=== PATIENT | female | born 1960 | race Caucasian/White ===

== ENCOUNTER 2016-10-03 13:39 | Emergency (ER) | payer OTHER ==
--- NOTE | 2016-10-03 14:16 | ER Document Report ---
ED Medical Screen (RME) - General Chief Complaint: Palpitations Stated Complaint: CHEST PAIN Time Seen by Provider: 10/03/16 14:15 Notes: Patient presents with palpitations for approximately last 4-5 days. She states have been intermittent. She was noticed at triage her today to be in SVT that spontaneously aborted to a sinus rhythm. She states she has been having some chest pain and shortness of breath as well as lightheadedness and dizziness. She denies any previous history of SVT. She denies any previous history of cardiac disease. She states she has no chronic medical conditions. She denies any new medications. She does not smoke and uses no type of hormone therapy. She denies any previous history of DVT. TRAVEL OUTSIDE OF THE [place] IN LAST 30 DAYS: Yes - mary - Related Data Allergies/Adverse Reactions: No Known Allergies Allergy (Unverified 10/03/16 14:05) Past Medical History Renal/ Medical History: Denies: Hx Peritoneal Dialysis Physical Exam - Vital signs Vitals: Temp Pulse Resp BP 97.7 F 98 20 144/114 H 10/03/16 14:00 10/03/16 14:00 10/03/16 14:00 10/03/16 14:00 Course - Vital Signs Vital signs: Temp Pulse Resp BP Pulse Ox 97.7 F 98 20 144/114 H 10/03/16 14:00 10/03/16 14:00 10/03/16 14:00 10/03/16 14:00
[2016-10-03 14:48] LABS: ABSOLUTE BASOPHILS # (AUTO) 0.1 10^3/uL (0.0-0.2); ABSOLUTE EOSINOPHILS # (AUTO) 0.2 10^3/uL (0.0-0.6); ABSOLUTE LYMPHOCYTES (AUTO) 1.7 10^3/uL (0.5-4.7); ABSOLUTE MONOCYTES (AUTO) 0.8 10^3/uL (0.1-1.4); ABSOLUTE NEUT (AUTO) 3.8 10^3/uL (1.7-8.2); BASOPHILS % (AUTO) 1.1 % (0-2); EOSINOPHILS % (AUTO) 2.5 % (0-6); HEMATOCRIT 45.6 % (36.0-47.0); HEMOGLOBIN 15.7 g/dL (12.0-15.5); HGB HCT DIFFERENCE 1.5; LYMPHOCYTES % (AUTO) 26.1 % (13-45); MEAN CORPUSCULAR HEMOGLOBIN 29.8 pg (27.0-33.4); MEAN CORPUSCULAR HGB CONC 34.4 g/dL (32.0-36.0); MEAN CORPUSCULAR VOLUME 87 fl (80-97); MONOCYTES % (AUTO) 12.4 % (3-13); RED BLOOD COUNT 5.25 10^6/uL (3.72-5.28); RED CELL DISTRIBUTION WIDTH 15.5 % (11.5-14.0); SEGMENTED NEUTROPHILS % (AUTO) 57.9 % (42-78); WHITE BLOOD COUNT 6.6 10^3/uL (4.0-10.5)
--- NOTE | 2016-10-03 15:05 | ER Document Report ---
ED Cardiac - General Mode of Arrival: Wheelchair Information source: Patient TRAVEL OUTSIDE OF THE [place] IN LAST 30 DAYS: Yes - mary - [facility] Patient complains to provider of: Chest pain - soreness, Palpitations, Other - lightheaded/dizzy Was the onset of pain: Sudden Is the pain a: New problem Quality of pain: Intermittent, Dull Cardiac risk factors: None Positive cardiac history: No Associated symptoms: Dizziness, Lightheaded, Palpitations Similar symptoms previously: No Recently seen / treated by doctor: No <ALVIN GARZON - Last Filed: 10/03/16 17:08> <LENA WATTS - Last Filed: 10/03/16 18:12> - General Chief Complaint: Palpitations Stated Complaint: CHEST PAIN Time Seen by Provider: 10/03/16 14:15 Notes: Patient is a 55 year old female presenting to the emergency department for palpitation since Sunday evening. Patient states she notices palpitations that last for about 30 seconds. Patient's palpitations are waxing and waning every 30 minutes and sometimes come on sooner than every 30 minutes. Patient was seen at [facility] yesterday and told she had a sinus arrhythmia and told to go to the emergency department if her palpitations become worse. Patient started taking a baby ASA daily. Patient states that she gets episodes of dizziness and lightheadedness which come on more frequently than the palpitations. Patient states she has not been able to sleep because it has kept her up at night so she has slept in the recliner the last few nights. Patient states she also has a soreness in her chest which is present after an episode. Patient denies taking any regular medications or new medications other than the ASA. Patient is not on any hormone therapy. Patient does not have any chronic medical conditions. Patient denies any cardiac medical history. Patient has no known allergies. (ALVIN GARZON) - Related Data Allergies/Adverse Reactions: No Known Allergies Allergy (Unverified 10/03/16 14:05) Home Medications: Current Home Medications Aspirin [Aspirin EC] 81 mg PO DAILY 10/03/16 [History] Past Medical History - General Information source: Patient - Social History Smoking Status: Never Smoker Cigarette use (# per day): No Chew tobacco use (# tins/day): No Smoking Education Provided: No Frequency of alcohol use: None Drug Abuse: None Family History: None Patient has suicidal ideation: No Patient has homicidal ideation: No Past Surgical History: Reports: Hx Breast Surgery - left breast biopsy x2 <ALVIN GARZON - Last Filed: 10/03/16 17:08> Review of Systems - Review of Systems Constitutional: No symptoms reported EENT: No symptoms reported Cardiovascular: See HPI, Chest pain - soreness, Palpitations, Heart racing, Dizziness, Lightheaded Respiratory: No symptoms reported Gastrointestinal: No symptoms reported Genitourinary: No symptoms reported Female Genitourinary: No symptoms reported Musculoskeletal: No symptoms reported Skin: No symptoms reported Hematologic/Lymphatic: No symptoms reported Neurological/Psychological: No symptoms reported -: Yes All other systems reviewed and negative <ALVIN GARZON - Last Filed: 10/03/16 17:08> Physical Exam - Vital signs Interpretation: Hypertensive <ALVIN GARZON - Last Filed: 10/03/16 17:08> <LENA WATTS - Last Filed: 10/03/16 18:12> - Vital signs Vitals: Temp Pulse Resp BP 97.7 F 98 20 144/114 H 10/03/16 14:00 10/03/16 14:00 10/03/16 14:00 10/03/16 14:00 - Notes Notes: GENERAL: Alert, interacts well. Mild distress. HEAD: Normocephalic, atraumatic. EYES: Appear normal. Pupils equal, round, and reactive to light. ENT: Moist mucus membranes, tongue midline. NECK: Full range of motion. Supple. Trachea midline. No carotid bruits. LUNGS: Clear to auscultation bilaterally, no wheezes, rales, or rhonchi. No respiratory distress. HEART: Irregular with frequent extra beats. ABDOMEN: Soft, non-tender. Non-distended. Normal bowel sounds. EXTREMITIES: Moves all 4 extremities spontaneously. Normal strength. No edema. NEUROLOGICAL: Alert and oriented x3. Normal speech. No focal neurological deficits. GSC 15. PSYCH: Normal affect, normal mood. SKIN: Warm, dry, normal turgor. No rashes or lesions noted. (ALVIN GARZON) Course - Laboratory Result Diagrams: 10/03/16 14:30 10/03/16 14:30 - Consults Dr. Fraser Time consulted: 15:50 <ALVIN GARZON - Last Filed: 10/03/16 17:08> - Laboratory Result Diagrams: 10/03/16 14:30 10/03/16 14:30 <LENA WATTS - Last Filed: 10/03/16 18:12> - Vital Signs Vital signs: Temp Pulse Resp BP Pulse Ox 97.7 F 88 22 H 138/78 H 96 10/03/16 14:00 10/03/16 14:22 10/03/16 17:52 10/03/16 17:52 10/03/16 17:52 - Laboratory Laboratory results interpreted by me: 10/03/16 10/03/16 14:30 14:30 Hgb 15.7 H RDW 15.5 H Glucose 111 H Calcium 11.2 H - Consults Dr. Fraser Reason for consultation: 10/03/16 16:[address] Fraser in the department about patient, he will go evaluate the patient. 10/03/16 16:[address] Fraser after his evaluation about patient. (ALVIN GARZON) Discharge <ALVIN GARZON - Last Filed: 10/03/16 17:08> <LENA WATTS - Last Filed: 10/03/16 18:12> - Discharge Clinical Impression: Paroxysmal supraventricular tachycardia Condition: Stable Disposition: HOME, SELF-CARE Additional Instructions: Palpitations (Irregular/Rapid Heartrate): Irregular or rapid heartbeat is called "palpitation." To diagnose the cause of palpitation, we have to "catch it in the act" with an EKG. Sinus Tachycardia: This is a rapid (but NORMAL) rhythm that can be due to fever, pain, anxiety, lack of sleep, over-exertion, or drugs. Cold medications, caffeine, and diet pills are particularly likely to cause tachycardia. Usually , all that's required is rest, reassurance, and avoiding caffeine, alcohol, nicotine, and unnecessary medicines. Paroxysmal Atrial Tachycardia (PAT): This abnormally rapid heartbeat is caused by a "short circuit" in the electrical system of the heart. It is not dangerous, unless other heart disease is present. These attacks of PAT may occur occasionally for years. Medication is available for treatment. Paroxysmal Atrial Fibrillation or Atrial Flutter: This is irregular electrical activity in the upper heart chamber. These abnormal rhythms often occur with valve disease or in hearts damaged by hardening of the arteries. These rhythms usually require further testing, for example a cardiac echo. Premature Beats: Extra beats occur more commonly after caffeine, nicotine , alcohol, cold pills, diet pills. Emotional stress or fatigue also provoke them. Extra beats are only dangerous when heart disease is present. They usually need no treatment. If they're frequent, or if evidence of heart disease develops, medication can be given to suppress them. If we were unable to "catch" the palpitations on EKG, you should try to get an EKG immediately if the symptoms begin again. Contact the physician at once if you develop persistent lightheadedness, shortness of breath, chest pain , or swelling of the ankles. Your rhythm irregularity seems to most likely be paroxysmal atrial tachycardia. Take the medications as prescribed. Rest. Drink plenty of fluids. Avoid caffeine. Follow-up with Dr. Fraser tomorrow at 1:00 PM in the office. RETURN TO THE EMERGENCY ROOM IF ANY NEW OR WORSENING SYMPTOMS. Prescriptions: Diltiazem HCl [Cardizem 60 mg Tablet] 60 mg PO Q6H #20 tablet Referrals: CAITLIN FRASER MD [ACTIVE STAFF] - 10/04/16 1:00 pm Scribe Attestation: 10/03/16 17:38 I personally performed the services described in the documentation, reviewed and edited the documentation which was dictated to the scribe in my presence, and it accurately records my words and actions. (LENA WATTS) Scribe Documentation - Scribe Written by Joshua:: Joshua Rojas 10/03/16 16:06 acting as scribe for :: Arias <ALVIN GARZON - Last Filed: 10/03/16 17:08>
[2016-10-03 15:07] LABS: ALANINE AMINOTRANSFERASE 40 U/L (9-52); ALBUMIN 4.5 g/dL (3.5-5.0); ALKALINE PHOSPHATASE 73 U/L (38-126); ANION GAP 15 (5-19); ASPARTATE AMINO TRANSFERASE 22 U/L (14-36); BILIRUBIN,DIRECT 0.3 mg/dL (0.0-0.4); BILIRUBIN,TOTAL 0.5 mg/dL (0.2-1.3); BLOOD UREA NITROGEN 12 mg/dL (7-20); CALCIUM 11.2 mg/dL (8.4-10.2); CARBON DIOXIDE 28 mmol/L (22-30); CHLORIDE 101 mmol/L (98-107); CREATININE RESULT 0.71 mg/dL (0.52-1.25); GLUCOSE 111 mg/dL (75-110); POTASSIUM 4.2 mmol/L (3.6-5.0); SODIUM 143.8 mmol/L (137-145); TOTAL PROTEIN 7.5 g/dL (6.3-8.2)
[2016-10-03] MEDS ORDERED: DILTIAZEM HCL 60 MG TABLET PO ONE (16:07)
[2016-10-03] MEDS ORDERED: DILTIAZEM HCL INJ 25 MG/5 ML VIAL IV ONE (16:07)
[2016-10-03] MEDS ORDERED: NORMAL SALINE 1000 ML 1,000 ML IV ONE (16:08)
[2016-10-03 16:11] LABS: ADD ON TESTING BLD IN LAB ACKNOWLEDGE
[2016-10-03 16:18] LABS: MAGNESIUM 1.8 mg/dL (1.6-2.3)
--- NOTE | 2016-10-03 16:24 | EKG REPORT ---
SEVERITY:- ABNORMAL ECG - SUPRAVENTRICULAR TACHYCARDIA BORDERLINE RIGHT AXIS DEVIATION REPOLARIZATION ABNORMALITY, PROB RATE RELATED : Confirmed by: Lesia Robert MD 03-Oct-2016 16:23:06
--- NOTE | 2016-10-03 16:24 | EKG REPORT ---
SEVERITY:- NORMAL ECG - SINUS RHYTHM : Confirmed by: Lesia Robert MD 03-Oct-2016 16:23:01
--- NOTE | 2016-10-03 16:37 | RADIOLOGY REPORT (SQ) ---
EXAM DESCRIPTION: CHEST SINGLE VIEW COMPLETED DATE/TIME: 10/03/2016 4:22 pm REASON FOR STUDY: SVT COMPARISON: None. EXAM PARAMETERS: NUMBER OF VIEWS: One view. TECHNIQUE: Single frontal radiographic view of the chest acquired. RADIATION DOSE: NA LIMITATIONS: None. FINDINGS: LUNGS AND PLEURA: No opacities, masses or pneumothorax. No pleural effusion. MEDIASTINUM AND HILAR STRUCTURES: No masses. Contour normal. HEART AND VASCULAR STRUCTURES: Heart normal in size. Normal vasculature. BONES: No acute findings. HARDWARE: None in the chest. OTHER: No other significant finding. IMPRESSION: NO ACUTE RADIOGRAPHIC FINDING IN THE CHEST. TECHNICAL DOCUMENTATION: JOB ID: [id number]
[2016-10-03 18:12] LABS: APPEARANCE,URINE CLEAR; BILIRUBIN,URINE NEGATIVE (NEGATIVE); GLUCOSE, URINE NEGATIVE (NEGATIVE); KETONES,URINE NEGATIVE (NEGATIVE); LEUKOCYTE ESTERASE,URINE NEGATIVE (NEGATIVE); NITRITE,URINE NEGATIVE (NEGATIVE); PROTEIN,URINE NEGATIVE (NEGATIVE); URINE SPECIFIC GRAVITY 1.002; UROBILINOGEN,URINE NEGATIVE mg/dL (<2.0)
--- NOTE | 2016-10-03 18:55 | PDOC CONSULTATION ---
Consultation Consult Date: 10/03/16 Attending physician:: LENA WATTS Consult reason:: Cardiac dysrhythmia History of Present Illness Admission Date/PCP: Date of consultation is October 03, 2016 Patient complains of: Palpitations History of Present Illness: ELIJAH DE LA VEGA is a 55 year old female presenting to the emergency department for palpitation since Sunday evening. Patient states she notices palpitations that last for about 30 seconds. Patient's palpitations are waxing and waning every 30 minutes and sometimes come on sooner than every 30 minutes. Patient was seen at [facility] yesterday and told she had a sinus arrhythmia and told to go to the emergency department if her palpitations become worse. Patient started taking a baby ASA daily. Patient states that she gets episodes of dizziness and lightheadedness which come on more frequently than the palpitations. Patient states she has not been able to sleep because it has kept her up at night so she has slept in the recliner the last few nights. Patient states she also has a soreness in her chest which is present after an episode. Patient denies taking any regular medications or new medications other than the ASA. Patient is not on any hormone therapy. Patient does not have any chronic medical conditions. Patient denies any cardiac medical history. Patient has no known allergies. Patient's symptoms started after she took 2 glasses of alcohol. However she does not drink on a regular basis. Patient does not smoke. Patient denied any prior history of heart problems. Patient denied taking any [id number] supplements, sinus medication. She does take Zyrtec plain in the morning. Patient does describe history of sleeping problem with history of loud habitual snoring which is bothersome to the . She has problems difficulty falling asleep and staying asleep. Past Medical History Medical History: None - None significant per patient Past Surgical History Past Surgical History: None significant reported by the patient Past Surgical History: Reports: None Social History Information Source: Patient Smoking Status: Never Smoker Frequency of Alcohol Use: Occasional - Advance Directive Resuscitation Status: Full Code Surrogate healthcare decision maker:: Patient's at the surrogate decision-maker Family History Family History: CAD Parental Family History Reviewed: Yes Children Family History Reviewed: Yes Sibling(s) Family History Reviewed.: Yes - Family history of CAD in father. Medication/Allergy Home Medications: Aspirin [Aspirin EC] 81 mg PO DAILY 10/03/16 Diltiazem HCl [Cardizem 60 mg Tablet] 60 mg PO Q6H #20 tablet 10/03/16 Allergies/Adverse Reactions: No Known Allergies Allergy (Unverified 10/03/16 14:05) Review of Systems Review of Systems: Please see history of present illness and past medical history as wall. Constitutional: No fever or chills reported. Head : No recent chronic headaches, recent head injury. Eyes: No recent eye pain, diplopia, redness, discharge, acute visual changes. Ears: No recent chronic ear pain, acute hearing loss, ear discharge. Oral cavity: No recent ulcerations, bleeding, oral cavity discomfort. Neck: No recent acute neck pain reported. Hematologic: No recent easy bruising or bleeding or hematologic malignancy reported. Lymphatic: No recent lymphatic malignancy, chronic lymphadenopathy reported yet Cardiovascular system review: See history of present illness. Respiratory system review: No recent chronic cough, hemoptysis, blood clots in the lungs reported. Mild Shortness of breath on exertion Gastrointestinal system review: Negative for any recent acute or chronic abdominal pain, hematemesis, melena, recent change in bowel habits. Genitourinary system review: No recent acute or chronic hematuria, flank pain, UTI etc. reported. Skin system review: Negative for any recent abnormal bruising, no rash, no pruritus reported. Neurologic: No prior history of strokes, mini strokes, seizure disorder. Psychologic: No history of major psychosis or major depression reported. Musculoskeletal: Minor aches and pains reported. No acute joint swelling reported. Endocrine: No recent polyuria, polydipsia, recent heat or cold intolerance. Physical Exam Vital Signs: Temp Pulse Resp BP Pulse Ox 97.7 F 88 22 H 138/78 H 96 10/03/16 14:00 10/03/16 14:22 10/03/16 17:52 10/03/16 17:52 10/03/16 17:52 Intake & Output 10/02/16 10/03/16 10/04/16 06:59 06:59 06:59 Weight 90.718 kg General appearance: PRESENT: no acute distress, well-developed, well-nourished Head exam: PRESENT: atraumatic, normocephalic Eye exam: PRESENT: conjunctiva pink, EOMI, PERRLA. ABSENT: scleral icterus Ear exam: PRESENT: normal external ear exam Mouth exam: PRESENT: moist, tongue midline Neck exam: ABSENT: carotid bruit, JVD, lymphadenopathy, thyromegaly Respiratory exam: PRESENT: clear to auscultation candace. ABSENT: rales, rhonchi, wheezes Cardiovascular exam: PRESENT: RRR. ABSENT: diastolic murmur, rubs, systolic murmur Pulses: PRESENT: normal dorsalis pedis pul Vascular exam: PRESENT: normal capillary refill GI/Abdominal exam: PRESENT: normal bowel sounds, soft. ABSENT: distended, guarding, mass, organolmegaly, rebound, tenderness Rectal exam: PRESENT: deferred Extremities exam: PRESENT: full ROM. ABSENT: calf tenderness, clubbing, pedal edema Neurological exam: PRESENT: alert, awake, oriented to person, oriented to place , oriented to time, oriented to situation, CN II-XII grossly intact. ABSENT: motor sensory deficit Psychiatric exam: PRESENT: appropriate affect, normal mood. ABSENT: homicidal ideation, suicidal ideation Skin exam: PRESENT: dry, intact, warm. ABSENT: cyanosis, rash Results Laboratory Results: 10/03/16 14:30 10/03/16 14:30 10/03/16 10/03/16 10/03/16 14:30 14:30 14:30 WBC 6.6 RBC 5.25 Hgb 15.7 H Hct 45.6 MCV 87 MCH 29.8 MCHC 34.4 RDW 15.5 H Plt Count 277 Seg Neutrophils % 57.9 Lymphocytes % 26.1 Monocytes % 12.4 Eosinophils % 2.5 Basophils % 1.1 Absolute Neutrophils 3.8 Absolute Lymphocytes 1.7 Absolute Monocytes 0.8 Absolute Eosinophils 0.2 Absolute Basophils 0.1 Sodium 143.8 Potassium 4.2 Chloride 101 Carbon Dioxide 28 Anion Gap 15 BUN 12 Creatinine 0.71 Est GFR ( Amer) > 60 Est GFR (Non-Af Amer) > 60 Glucose 111 H Calcium 11.2 H Magnesium Total Bilirubin 0.5 AST 22 ALT 40 Alkaline Phosphatase 73 Total Protein 7.5 Albumin 4.5 TSH 3.02 Urine Color Urine Appearance Urine pH Ur Specific [place] Urine Protein Urine Glucose (UA) Urine Ketones Urine Blood Urine Nitrite Ur Leukocyte Esterase Urine WBC (Auto) Urine RBC (Auto) 10/03/16 10/03/16 14:30 17:50 WBC RBC Hgb Hct MCV MCH MCHC RDW Plt Count Seg Neutrophils % Lymphocytes % Monocytes % Eosinophils % Basophils % Absolute Neutrophils Absolute Lymphocytes Absolute Monocytes Absolute Eosinophils Absolute Basophils Sodium Potassium Chloride Carbon Dioxide Anion Gap BUN Creatinine Est GFR ( Amer) Est GFR (Non-Af Amer) Glucose Calcium Magnesium 1.8 Total Bilirubin AST ALT Alkaline Phosphatase Total Protein Albumin TSH Urine Color COLORLESS Urine Appearance CLEAR Urine pH 7.0 Ur Specific [place] 1.002 Urine Protein NEGATIVE Urine Glucose (UA) NEGATIVE Urine Ketones NEGATIVE Urine Blood SMALL H Urine Nitrite NEGATIVE Ur Leukocyte Esterase NEGATIVE Urine WBC (Auto) 1 Urine RBC (Auto) 0 10/03/16 14:30 Troponin I < 0.012 EKG Comments: Paroxysmal atrial tachycardia with heart rate of 190, narrow complex Impressions: Chest X-Ray 10/03/16 16:06 IMPRESSION: NO ACUTE RADIOGRAPHIC FINDING IN THE CHEST. Assessment & Plan - Diagnosis (1) Paroxysmal supraventricular tachycardia Is this a current diagnosis for this admission?: Yes (2) Sleep disorder Is this a current diagnosis for this admission?: Yes (3) Obesity Qualifiers: Obesity classification: adult class 1 (BMI 30 ? 34.9) Is this a current diagnosis for this admission?: Yes - Notes Notes: Supraventricular tachycardia: Patient noted to have paroxysms of supraventricular tachycardia. Close review of EKG shows paroxysmal atrial tachycardia. Believe that patient could have atrial cardiomyopathy. Patient electrolytes have come back within normal limits. No evidence of CHF. At this point have recommended that patient be given IV diltiazem 15 mg bolus followed by 60 mg Cardizem p.o. every 6. Discussed various treatment options including observation for 24 hours. Patient however did not want to stay in. Cardiac enzymes subsequently came back negative 1. Patient felt better with therapy. Patient being discharged home to follow with me in the office tomorrow. TSH came back negative. Sleep disorder: Patient gives history of loud habitual snoring. Body habitus suggest presence of underlying sleep apnea syndrome. Patient has been recommended a sleep evaluation as an outpatient. Obesity: Discussed association of atrial dysrhythmia and also sleep apnea with obesity. Patient has been encouraged to lose weight. - Time Time Spent: 50 to 70 Minutes - Patient currently full code. Patient spouse is the surrogate decision maker. More than 50% of the time spent coordinating care , discussing management plans with involved caregivers. Management plans discussed with involved personnels. Medical decision making was of moderate to high complexity, patient's has multiple comorbidities. Medications reviewed and adjusted accordingly: Yes
[2016-10-03 19:09] VITALS: BP 123/83
== END 2016-10-03 19:09 | disposition home or self-care (01) ==
LOC: ER 13:39
DX: I47.1 Supraventricular tachycardia (principal); R42 Dizziness and giddiness; R07.9 Chest pain, unspecified
CPT/HCPCS: 93005; 99285; 96361; 96374; 36415; 83735; 84443; 85025; 80053; 81001; 84484; 85379; 71010; 93010; J3490; J7030